=== PATIENT | female | born 1960 | race Caucasian/White ===

== ENCOUNTER 2024-08-07 11:15 | Emergency (ER) | payer BC, SELFPAY ==
--- OUTSIDE RECORDS SUMMARY | 2024-08-07 11:17 | XMS_ITS | Clinical Summary ---
[facility] Organization [facility] Address [address] [place] [address] Care Team Providers Care Sheet Rock Nailer Name Role Phone Radha Shaver PA-C Primary Care Provider [phone] Source Comments You are receiving this document as you are listed as the primary care provider,follow-up provider, or the patient has been referred to you for consultation.This is in compliance with the Medicare andBerger Hospitalcaid EHR Incentive Program,which states Providers who transition their patient to another setting of careor provider of care or refers their patient to another provider of care shouldprovide summary care record for each transition of care or referral. [email or web address] Allergies No known active allergies Medications Probiotic Product (ACIDOPHILUS PROBIOTIC) capsule Twice daily for 10 days 20 Cap 0 05/29/2016 Active ascorbic acid 500 MG tablet Take 500 mg by mouth daily. Active cholecalciferol (VITAMIN D3) 1000 units tablet Take 1,000 Units by mouth daily. Active Active Problems Problem Noted Date Diagnosed Date Obesity (BMI 35.0-39.9 without comorbidity) 04/05 Elevated blood pressure read ing without diagnosis of hypertension 04/19/2017 Immunizations Immunization Administration Dates Next Due DT Ped 12/24/1991 Flu Vac Preserv Free (3+yrs) 02/15/2010 HepA-HepB ([place], 18+ yrs) 04/19/2017,08/04/19 05,03/29/2004 Influenza, Unspecified Formulation 02/17/2017 Td 04/02/2003 Tdap 05/29/2016 Family History Medical History Relation Name Comments Cataract Father Hearing Loss Father Cataract Mother Atrial Fib Brother 1 No Known Problems Brother 2 Cancer Maternal Grandfather Lung ca ncer, age 30s Cancer Maternal Grandmother Breast cancer late 40s? No Known Problems Paternal Grandfather Di ed after hip fracture. No Known Problems Paternal Grandmother Atrial Fib Sister 1 Obesity Sister 1 No Known Problems Sister 2 Relation Name Status Comments Father Alive Mother Alive Brother 1 Alive Brother 2 Alive Maternal Grandfather Maternal Grandmother Paternal Grandfather Paternal Grandmother Sister 1 Alive Sister 2 Alive Social History Tobacco Use Types Packs/Day Years Used Date Smoking Tobacco: Never Smokeless Tobacco: Never Alcohol Use Standard Drinks/Week Comments Yes 2 (1 standard drink = 0.6 oz pur e alcohol) Comments No Sex and Gender Information Value Date Recorded Sex Assigned at Not on file Legal Sex Female 4:44 AM CDT Gender Identity Not on file Sexual Orientation Not on file 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 Not on file Not on file Not on file Last Filed Vital Signs Vital Sign Reading Time Taken Comments Blood Pressure 136/78 11/09/2017 10:26 AM CDT Pulse 104 11/09/2017 10:26 AM CDT Temperature 36.9 C (98.4 F) 11/09/2017 10:26 AM CDT Respiratory Rate 24 11/09/2017 10:26 AM CDT Oxygen Saturation 97% 11/09/2017 11:54 AM CDT Inhaled Oxygen Concentration - - Weight 118.4 kg (261 lb) 04/19/2017 9:54 AM RISK MANAGEMENT SPECIALIST Height 174 cm (5' 8.5) 04/19/2017 9:54 AM RISK MANAGEMENT SPECIALIST Body Mass Index 39.11 04/19/2017 9:54 AM RISK MANAGEMENT SPECIALIST Plan of Treatment Health Maintenance Due Date Last Done Comments Colon Cancer Screening Plan Due 1960 Cholesterol 03/29/2009 03/29/2004 Pneumococcal 50+ Yrs (1 of 1 - PCV) 2010 Zoster/Shingles (1 of 2) 2010 Adult Preventive Visit 04/19/2018 04/19/2017 Mammogram 05/09/2018 05/09/2017 Cervical Cancer Screening 04/19/20202016, 04/19/2017, 03/29/2004, Additional history exists COVID-19 Vaccine ( season) 2024 07/28/2020 Influenza (#1) 2024 01/15/2020, 02/04, 02/17/2017, Additional history exists DTaP/Tdap/Td (4 - Tdap) 05/29/2026 05/29/19 17, 04/02/2003, 12/24/1991 RSV (1 - 1-dose 75+ series) 07/11/2035 HIV Screening (Preventive Services) Completed 04/19/2017 Hep C Screening (Preventive Services) Completed 04/19/2017 HepA Aged Out 04/19/2017, 07/06, 03/29/2004 No longer eligible based on patient's age to complete this topic HepB Completed 04/19/2017, 07/06, 03/29/2004 Hib Aged Out No longer eligi ble based on patient's age to complete this topic IPV (Polio) Aged Out No longer eligi ble based on patient's age to complete this topic MCV4 Aged Out No longer eligi ble based on patient's age to complete this topic Meningococcal B Aged Out No longer el igible based on patient's age to complete this topic Procedures Procedure Name Priority Date/Time Associated Diagnosis Comments MM MAMMOGRAM SCREENING BILAT W CAD Routine 05/09/2017 11:36 AM RISK MANAGEMENT SPECIALIST Screening for breast cancer ANATOMICAL PATH LIQUID BASED Routine 04/19/2017 10:58 AM RISK MANAGEMENT SPECIALIST HIV 1/2 AG/AB 4TH GEN Routine 04/19/2017 10:51 AM RISK MANAGEMENT SPECIALIST Screening for STDs (sexually transmitted diseases) HEPATITIS C ANTIBODY, WITH REFLEX Routine 04/19/2017 10:51 AM RISK MANAGEMENT SPECIALIST Screening for STDs (sexually transmitted diseases) CHOLESTEROL, TOTAL AND HDL Routine 03/29/2004 4:11 PM RISK MANAGEMENT SPECIALIST from Last 3 Months or Most Recently Relevant to Health Maintenance Results * MM Mammogram Screening Bilat W CAD (05/09/2017 11:36 AM RISK MANAGEMENT SPECIALIST) Anatomical Region Laterality Modality Breast Bilateral Mammography Impressions 05/09/2017 11:45 AM RISK MANAGEMENT SPECIALIST : ACR BI-RADS Category 1: Negative RECOMMENDATION: Follow Up Imaging in 12 months - Bilateral The results and recommendations of this examination will be communicated to the patient. Narrative 05/09/2017 11:45 AM RISK MANAGEMENT SPECIALIST MM MAMMOGRAM SCREENING BILAT W CAD performed on 05/09/17 No comparisons were made when reading this study. FINDINGS: Bilateral screening mammogram was performed with the assistance of Computer-Aided Detection. The breasts have scattered areas of fibroglandular density. There is no radiographic evidence of malignancy. Radha Shaver PA-C RAD MULUGETA Final Result * Pap Smear (04/19/2017 10:58 AM RISK MANAGEMENT SPECIALIST) 04/19/2017 10:5 8 AM RISK MANAGEMENT SPECIALIST Narrative MELIDA MOJICA - 04/25/2017 3:09 PM RISK MANAGEMENT SPECIALIST FINAL GYNECOLOGICAL CYTOLOGY REPORT Pathology #: [id number] Date Obtained: 04/19/2017 Date Received: 04/22/2017 INTERPRETATION/RESULTS: Negative for Intraepithelial Lesion or Malignancy. SPECIMEN ADEQUACY: Satisfactory for Evaluation. Endocervical cells/transformation zone component present. Verified on 04/25/2017 by EDSON SCOTT(ASCP) (electronic signature) CLINICAL NOTES: Abnormal bleeding: No, LMP: Postmenopausal, Menstrual status: Post Menopausal, Current form of therapy: None apply LIQUID BASED PAP SMEAR SPECIMEN TYPE: ROUTINE CERVICAL PAP TEST PLEASE NOTE: The pap smear is a screening test designed to aid in the detection of cervical cancer and its precursor lesions. It is not a diagnostic procedure and should not be used as the sole means of detecting cervical cancer. Both false-positive and false-negative reports may occur. Performed at [facility], [address] [place] [address] Radha Shaver PA-C LAB_1 Final Result [facility]IOR [address] [place] [address] * HIV 1/2 Ag/Ab 4th Generation (04/19/2017 10:51 AM RISK MANAGEMENT SPECIALIST) HIV-1 p24 Ag and HIV-1/HIV-2 Ab Nonreactive Nonreactive PN SOFT 04/19/2017 10:5 1 AM RISK MANAGEMENT SPECIALIST 04/19/2017 2:57 PM RISK MANAGEMENT SPECIALIST Narrative PN SOFT - 04/19/2017 4:14 PM RISK MANAGEMENT SPECIALIST Performed at [facility], [address] [place] [address] CLIA number [id number] us Radha Shaver PA-C LAB_1 Final Result Performing Organization Address [facility] Co de Phone Number PN SOFT [address] [place] [address] * Hepatitis C Virus [place] with Reflex (04/19/2017 10:51 AM RISK MANAGEMENT SPECIALIST) [facility] Hepatitis C Antibody Nonreactive Nonreactive PN SOFT 04/19/2017 10:5 1 AM RISK MANAGEMENT SPECIALIST 04/19/2017 2:57 PM RISK MANAGEMENT SPECIALIST Narrative PN SOFT - 04/19/2017 4:14 PM RISK MANAGEMENT SPECIALIST Performed at [facility], [address] [place] [address] CLIA number [id number] us Radha Shaver PA-C LAB_1 Final Result Performing Organization Address [facility] de Phone Number PN SOFT [address] [place] [address] * (ABNORMAL) Cholesterol, Total and HDL (03/29/2004 4:11 PM RISK MANAGEMENT SPECIALIST) Pathologist [facility] Cholesterol/HDL Ratio Screen 2.2 No normal range HP CONVERSION Cholesterol 139 125 - 199 mg/dL HP CONVERSION HDL Cholesterol 63(H) 40 - 60 mg/dL HP CONVERSION 03/29/2004 4:11 PM RISK MANAGEMENT SPECIALIST us Terrie Alcantara APRN, ELLEN LAB_1 Final Result Performing Organization Address City/[facility] Co de Phone Number HP CONVERSION from Last 3 Months or Most Recently Relevant to Health Maintenance Insurance [place] [address] Care Teams Sheet Rock Nailer Relationship Specialty Start Date End Date Radha Shaver, PAJose EnriqueC [address] [place], [place] [id number] PCP - General Physician Risk Advisor 04/17/17
--- OUTSIDE RECORDS SUMMARY | 2024-08-07 11:18 | XMS_ITS | Data Portability ---
Author Organization [facility] Address [address] [place] [address] Assessment Encounter Date Assessment Date Assessment LastModified by Organization Details LastModified Time 07/30/2024 07/30/2024 Urinary tract infection - supported by the patient's symptoms of dark, reddish urine and a burning sensation, along with a prior history of UTI. - Prescribed antibiotics to be taken once in the morning and once at night for the next five days - Suggested drinking cranberry juice - Advised to increase fluid intake - Recommended not to hold urine for extended periods as a preventative measure Not available 07/30/2024 20:55:22 Plan of Treatment Reminders Order Date Submit Date Provider Last Modified By Organization Details Last Modified Time Details Appointments None recorded. Lab None recorded. Referral None recorded. Procedures None recorded. Surgeries None recorded. Imaging None recorded. Medication Orders nitrofurant oin monohydrate /macrocryst als 100 mg capsule 2024 025 [id number], [address], [place], [address], 20:58:29 Patient TargetsNo targets recorded. Patient Instructions Encounter Date Encounter Id Patient Instructions Last Modified By Organization Details Last Modified Time 07/30/2024 [id number] Urinary Tract Infection (UTI) in Women: Care Instructions Not available 07/30/2024 20:58:27 Summary of Today's Visit: During your visit, we discussed your symptoms suggestive of a urinary tract infection (UTI), including darkish, reddish urine and a burning sensation when urinating. You indicated that these symptoms began yesterday, and you had a similar infection about nine months ago. Treatment Plan and Recommendations: To address your UTI, you will begin a course of antibiotics. Please take one antibiotic tablet in the morning and one at night for the next five days. Alongside this, increasing your fluid intake is crucial. You can consume cranberry juice, which can be beneficial for UTI prevention and management. Preventive Advice: Remember not to hold your urine for long periods, as this can increase the risk of UTIs. If you feel the urge to urinate, make sure to go promptly. Maintaining this habit can help prevent future infections. Follow-Up: There is no need for immediate follow-up unless your symptoms persist beyond the course of antibiotics or worsen. Should you experience ongoing symptoms or new concerns, please contact us for further assistance. Not available 07/30/2024 20:55:27 Reason for Referral None Reported. Medical Equipment None Reported. Allergies No known drug allergies Medications Name Sig Start Date Stop Date Status Note LastModified by Organization Details LastModified Time sulfamethoxazol e 800 mg-trimethoprim 160 mg tablet active Not Available Not Availabl e Not Available nitrofurantoin monohydrate/mac rocrystals 100 mg capsule Take 1 capsule every 12 hours by oral route for 5 days. 2024 active Not Available Not Available Not Avai lable Vitals None Recorded Social History None recorded. Functional Status None recorded. Mental Status None recorded. Family History Nothing Reported. Medical History No medical history recorded. Gynecological HistoryNo gynecological history recorded. Obstetrics History GPAL:G 0 P 0 0 0 0 Past Encounters Encounter ID Performer Location Encounter Start Date Encounter Closed Date Diagnosis/Indication Diagnosis SNOMED-CT Code Diagnosis ICD10 Code Diagnosis Note [id number] FLORES Loyd [facility] [address] [address] 07/30/2024 20:51:07 07/30/2024 20:59:59 Acute urinary tract infection 546593731 N39.0 Health Concerns Section Related Observation LastModified by Organization Detai ls LastModified Time None Recorded Concern Status LastModified by Organization Details LastModified Time None Recorded Advance Directives Directive None Recorded Payers Encounter Date Sequence Insurance Name Policy Number Policy Rob Covered Member ID Rob Member ID Guarantor Name 07/30/2024 1 [facility] [id number] Ginny Pandey [id number] Ginny Mellobenoit 07/30/2024 2 *SELF PAY* [id number] Ginny Pandey [id number] Ginny Pandey Notes Date Note Type Note Provider Name and Address Organization Details Recorded Time 07/30/2024 text/html Call connected , pt greeted,pt name, and location verified. Telemedicine and scribe consent obtained. Clinician attest she is physically located in [facility] at the time of the visit. CC: Dark urine and burning sensation during urination HPI: The patient reports the onset of urinary symptoms yesterday, characterized by very dark, darkish, reddish urine and a burning sensation during urination. The patient suspects a urinary tract infection (UTI), having experienced a similar episode approximately nine months ago. The severity of the symptoms prompted the patient to seek medical attention promptly. There have been no treatments or medications taken prior to this visit; the patient has only been consuming a lot of water to manage symptoms. Patient denies having any allergies to medications. The patient has not reported any associated symptoms such as fever, flank pain, or abdominal cramps. FLORES Loyd [address] [place] [address], [address], [facility] 07/30/2024 20:58:29 OBGyn Episode No OBEpisode recorded.
--- OUTSIDE RECORDS SUMMARY | 2024-08-07 11:18 | XMS_ITS | Continuity of Care Document ---
Author Organization [place] - [facility] [employer] , [facility] Address [address] [address] Assessment Encounter Date Assessment Date Assessment LastModified [...] /macrocryst als 100 mg capsule 2024 025 [id number], [address], [place], [address], 20:58:29 Patient TargetsNo targets recorded. Patient Instructions Encounter Date Encounter Id Patient Instructions Last Modified By Organization Details Last Modified Time 07/30/2024 [id number] Urinary Tract Infection (UTI) in Women: Care [...] SNOMED-CT Code Diagnosis ICD10 Code Diagnosis Note [id number] FLORES Loyd [facility] [address] [facility] [address] [place] [address] 07/30/2024 20:51:07 07/30/2024 20:59:59 Acute urinary tract infection [id number] N39.0 Health Concerns Section Related Observation LastModified by Organization Detai ls LastModified Time None Recorded Concern Status LastModified by Organization Details LastModified Time None Recorded Payers Encounter Date Sequence Insurance Name Policy Number Policy Rob Covered Member ID Rob Member ID Guarantor Name 07/30/2024 1 [facility] [id number] Ginny Pandey [id number] Ginny Pandey 07/30/2024 2 *SELF PAY* [id number] Ginny Pandey [id number] Ginny Pandey Notes Date Note Type Note Provider Name and Address Organization Details Recorded Time 07/30/2024 text/html Call connected , pt greeted,pt name, and location verified. Telemedicine and scribe consent obtained. Clinician attest she is physically located in [facility] at the time of the visit. CC: [...] flank pain, or abdominal cramps. FLORES Loyd [address] [place] [address], [place], [address], [facility] 07/30/2024 20:58:29 OBGyn Episode No OBEpisode recorded.
[2024-08-07 11:19] VITALS: BP 149/96; PULSE 104; RESP 20; TEMP 36; O2SAT 96; BMI 41.3
--- NOTE | 2024-08-07 11:38 | ED_ITS ---
HPI - General Adult General Chief complaint: Flank Pain Stated complaint: UTI Time Seen by Provider: 08/07/24 11:29 History of Present Illness HPI narrative: Patient is a otherwise healthy 64-year-old woman comes in today with with 8 days of intermittent left flank pain and dysuria. She is on online provider last week was placed on Macrobid. The dysuria improved with the left flank pain has worsened. The pain is in the CVA region on the left with no significant radiation. Not done any recent changes in her activity level. She has had no dysuria remaining after treatment. No nausea no vomiting. His pain is 8/10 and severe as well as sharp and stabbing. Patient is otherwise in her usual state of health. Related Data Allergies Allergy/AdvReac Type Severity Reaction Status Date / Time No Known Drug Allergies Allergy Verified 08/07/24 11:19 Review of Systems Status of ROS: Reports: 10 or more systems reviewed and unremarkable except as noted in History and below PFSH PFS Social History Smoking Status: Never smoker Do you use any of these nicotine containing products: None Second hand tobacco smoke exposure: No How often do you have a drink containing alcohol: monthly or less How many standard drinks containing alcohol do you have on a typical day: 1 or 2 How often do you have six or more drinks on one occasion: Never AUDIT-C Alcohol total score: 1 Non-prescribed substance use: denies use service: No Exam Narrative: Exam Narrative: EXAM GENERAL: Patient appears uncomfortable. EYES: No scleral icterus. ENT: Tympanic membranes and oropharynx normal. THYROID: no thyroid nodules or thyromegaly. LYMPH: No supraclavicular or cervical lymphadenopathy. SKIN: Visible skin seen during exam normal or with benign process only. EXT: No dependent lower extremity pedal edema. HEART: Regular rate and rhythm with no murmurs, rubs, or gallops. LUNGS: Clear to auscultation bilaterally with no crackles or wheezes. ABD: Soft, non tender, non distended. PSYCH: Good eye contact, speech is not pressured. Const: Vital Signs, click to edit/add: Vital Signs - 24 hr 08/07/24 11:19 Temperature 96.8 F L Pulse Rate [Pulse Oximeter] 104 H Respiratory Rate 20 Blood Pressure [Ri ght Forearm] 149/96 H Pulse Oximetry 96 Oxygen Delivery Me thod Room Air Course Course ED Course: Patient seen and examined. CT abdomen pelvis kidney stone protocol as well as CBC UA basic metabolic panel pending. Vital Signs Vital signs: Initial Vital Signs Temperature 96.8 F L 08/07/24 11:19 Temperature Source Temporal Artery Scan 08/07/24 11:19 Pulse Rate 104 H 08/07/24 11:19 Pulse Rhythm Regular 08/07/24 11:19 Respiratory Rate 20 08/07/24 11:19 Blood Pressure 149/96 H 08/07/24 11:19 Blood Pressure Mean 113 H 08/07/24 11:19 Blood Pressure Position Sitting 08/07/24 11:19 Pulse Oximetry 96 08/07/24 11:19 Oxygen Delivery Method Room Air 08/07/24 11:19 Vital Signs Temperature 96.8 F L 08/07/24 11:19 Pulse Rate 104 H 08/07/24 11:19 Respiratory Rate 20 08/07/24 11:19 Blood Pressure 149/96 H 08/07/24 11:19 Pulse Oximetry 96 08/07/24 11:19 Oxygen Delivery Method Room Air 08/07/24 11:19 Temperature 96.8 F L 08/07/24 11:19 Pulse Rate 104 H 08/07/24 11:19 Respiratory Rate 20 08/07/24 11:19 Blood Pressure 149/96 H 08/07/24 11:19 Pulse Oximetry 96 08/07/24 11:19 Oxygen Delivery Method Room Air 08/07/24 11:19 Medical Decision Making [facility] Narrative Medical decision making narrative: Patient is a 64-year-old woman who presents with left flank pain. CT of the abdomen and pelvis shows a 7 mm kidney stone in the bladder with left-sided hydronephrosis. No signs of UTI on UA. She does have an adrenal mass that needs further evaluation with MRI which can be done as an outpatient. This time will treat her with plenty of rest plenty fluids Vicodin as needed and follow-up with her primary doctor the next 1-2 weeks to schedule outpatient MRI of the left adrenal. Lab Data Labs: Lab Results 08/07/24 Range/Units 11:50 WBC 8.24 (4.50-11.00) K/uL RBC 4.87 (4.00-5.20) m/uL Hgb 13.5 (12.0-16.0) gm/dL Hct 41.9 (33.0-51.0) % MCV 86 (80-100) fL MCH 28 (26-34) pg MCHC 32 (32-36) gm/dL RDW Coeff of Arthur 12.8 (11.5-15.5) % Plt Count 190 (140-440) K/uL Neut % (Auto) 81.1 H (42.0-72.0) % Lymph % (Auto) 10.2 L (20-44) % Sutter % (Auto) 7.9 (0.0-11.0) % Eos % (Auto) 0.5 (0.0-7.0) % Baso % (Auto) 0.1 (0.0-3.0) % Neut # (Auto) 6.70 (1.7-7.0) K/uL Lymph # (Auto) 0.80 L (0.90-2.90) K/uL Sutter # (Auto) 0.70 (0.00-0.90) K/UL Eos # (Auto) 0.04 (0.00-0.50) K/uL Baso # (Auto) 0.01 (0.00-0.30) K/uL Abs Immat Gran (auto) 0.02 (0.00-0.30) K/uL Imm/Tot Granulo (auto) 0.2 % Sodium 138 (135-149) mmol/L Potassium 3.9 (3.6-5.1) mmol/L Chloride 103 (96-114) mmol/L Carbon Dioxide 24 (20-32) mmol/L Anion Gap 11 (7-15) mEq/L BUN 25 (7-30) mg/dL Creatinine 1.3 (0.5-1.5) mg/dL Estimated Creat Clear 45.69 Estimated GFR 46 ml/min Glucose 101 (60-115) mg/dL Calcium 9.3 (8.4-10.6) mg/dL Urine Color Yellow (Yellow) Urine Appearance Slightly Cloudy A (Clear) Urine pH 5.5 (5.0-8.5) Ur Specific [place] 1.025 (1.000-1.030) Urine Protein Negative (Negative) Urine Glucose (UA) Negative (Negative) Urine Ketones Negative (Negative) Urine Blood Trace-intact A (Negative) Urine Nitrite Negative (Negative) Urine Bilirubin Negative (Negative) Urine Urobilinogen 0.2 (0.2-1.0) Ur Leukocyte Esterase Negative (Negative) Urine RBC 0-2 (0-2) Urine WBC 0-2 (0-5) Ur Squamous Epith Cells Few (None-Few) Uric Acid Crystals Moderate A (None) Urine Bacteria None (None) Discharge Plan Discharge Clinical Impression: Kidney stone Patient Disposition: Home, Self-Care Condition: Stable Instructions: Kidney Stones (ED) Additional Instructions: [place] as directed. Plenty of fluid Screen urine Follow-up with your doctor in the next 1-2 weeks to schedule MRI of the left adrenal. Activity Level: No Restrictions Discharge Diet: Regular Follow Up/Referrals: Provider,Not a Local [Primary Care Provider] - Stand Alone Forms: freshbag Info Instructions
--- NOTE | 2024-08-07 11:40 | CRLHL7_ITS ---
For Patients: As a result of the Century Cures Act, medical imaging exams and procedure reports are released immediately into your electronic medical record. You may view this report before your referring provider. If you have questions, please contact your health care provider. Indication: Left-sided stone Technique: CT abdomen and pelvis without contrast Comparison: None. Findings: Lower chest is clear. The liver, gallbladder, pancreas, spleen, and right adrenal gland are normal. 65 x 52 millimeter low-density mass/cystic lesion with small calcifications extends from the left adrenal gland. The right kidney is normal. There is moderate left hydroureteronephrosis extending to the urinary bladder and no stones within the left kidney or the left ureter. There is a 7 millimeter stone within the urinary bladder which is minimally filled and inadequately evaluated. There are no pelvic cysts or masses. The hollow viscera is without obstruction or adjacent inflammatory stranding. There is no free air, ascites or lymphadenopathy. The abdominal aorta is normal in caliber. Soft tissues are unremarkable. There are degenerative changes within the lumbar spine. IMPRESSION: 1. Large left adrenal cystic neoplasm, with differential diagnosis to include benign (adrenal pseudocyst, endothelial cyst) versus malignant (carcinoma, pheochromocytoma) etiologies. Further evaluation is warranted to include appropriate laboratory correlation and multi phase adrenal CT or abdominal MR with and without gadolinium. 2. 7 millimeter stone within the urinary bladder with associated left hydroureteronephrosis is compatible with very recent passage of left-sided kidney stone. Findings discussed with Dr. Farias at time of dictation. Please note that all CT scans at this facility use dose modulation, iterative reconstruction, and/or weight-based dosing when appropriate to reduce radiation dose to as low as reasonably achievable. Dictated by Tino Manzanares MD @ 08/07/2024 12:43:02 PM (Electronically Signed)
[2024-08-07 12:01] LABS: Appearance Urine Slightly Cloudy (Clear); Bilirubin Urine Negative (Negative); Blood Urine Trace-intact (Negative); Color Urine Yellow (Yellow); Glucose Urine Negative (Negative); Ketones Urine Negative (Negative); Leukocyte Esterase Urine Negative (Negative); Nitrite Urine Negative (Negative); Protein Urine Negative (Negative); Specific Gravity Urine 1.025 (1.000-1.030); Urobilinogen Urine 0.2 (0.2-1.0); pH Urine 5.5 (5.0-8.5)
[2024-08-07 12:03] LABS: Basophils Absolute Auto 0.01 K/uL (0.00-0.30); Basophils Percent Auto 0.1 % (0.0-3.0); Eosinophils Absolute Auto 0.04 K/uL (0.00-0.50); Eosinophils Percent Auto 0.5 % (0.0-7.0); Hematocrit 41.9 % (33.0-51.0); Hemoglobin* 13.5 gm/dL (12.0-16.0); Immature Granulocytes Abs Auto 0.02 K/uL (0.00-0.30); Immature Granulocytes Pct Auto 0.2 %; Lymphocytes Percent Auto 10.2 % (20-44); Mean Corpuscular HGB Conc 32 gm/dL (32-36); Mean Corpuscular Hemoglobin 28 pg (26-34); Mean Corpuscular Volume 86 fL (80-100); Monocytes Percent Auto 7.9 % (0.0-11.0); Neutrophils Percent Auto 81.1 % (42.0-72.0); Platelet Count* 190 K/uL (140-440); RDW Coefficient of Variation % 12.8 % (11.5-15.5); Red Blood Count 4.87 m/uL (4.00-5.20); White Blood Count* 8.24 K/uL (4.50-11.00)
[2024-08-07 12:07] LABS: Slide Review Reflex No
[2024-08-07 12:17] LABS: Chloride* 103 mmol/L (96-114); Potassium* 3.9 mmol/L (3.6-5.1); Sodium* 138 mmol/L (135-149)
[2024-08-07 12:20] LABS: Anion Gap 11 mEq/L (7-15); Blood Urea Nitrogen* 25 mg/dL (7-30); Carbon Dioxide* 24 mmol/L (20-32); Creatinine* 1.3 mg/dL (0.5-1.5); Est. Creatinine Clearance* 45.69; Estimated Glomerular Filt Rate 46 ml/min
[2024-08-07 12:21] LABS: Calcium* 9.3 mg/dL (8.4-10.6); Glucose* 101 mg/dL (60-115); RBC Urine 0-2 (0-2); Squamous Epithelial Cell Urine Few (None-Few); Uric Acid Crystals Urine Moderate; WBC Urine 0-2 (0-5)
== END 2024-08-07 13:09 | disposition home or self-care (01) ==
PROVIDERS: Emergency Provider Internal Medicine
DX: N13.30 Unspecified hydronephrosis (principal); N20.0 Calculus of kidney
CPT/HCPCS: 36415; 74176; 80048; 81001; 81003; 85025; 99283; 99284

== ENCOUNTER 2024-12-02 16:21 | Outpatient (CLI) | payer BC, SELFPAY ==
--- NOTE | 2024-12-02 16:45 | CRLHL7_ITS ---
For Patients: As a result of the Century Cures Act, medical imaging exams and procedure reports are released immediately into your electronic medical record. You may view this report before your referring provider. If you have questions, please contact your health care provider. INDICATION: Other specified soft tissue disorders. COMPARISON: None. TECHNIQUE: A compression venous ultrasound exam was performed of the right lower extremity using caceres-scale imaging, color Doppler, and spectral Doppler analysis. FINDINGS: Sonographic imaging of the right lower extremity demonstrates normal compressibility and color Doppler venous blood flow within the common femoral, femoral, deep femoral, and proximal greater saphenous veins. At a lower level the popliteal, peroneal, and posterior tibial veins also show normal compressibility and color Doppler venous blood flow. There is a 2.1 x 4.3 x 7.2 cm complex lobulated fluid collection in the right popliteal fossa with no internal vascularity. Limited imaging of the contralateral groin demonstrates a normal spectral waveform and color Doppler venous blood flow within the left common femoral vein. IMPRESSION: 1. Negative for acute DVT in the right lower extremity. 2. Complex right popliteal fossa cyst. Dictated by Gely Das MD @ 12/03/2024 3:21:43 AM (Electronically Signed)
== END 2024-12-02 16:22 | disposition home or self-care (01) ==
LOC: US 16:22
PROVIDERS: Visit Provider Physician Assistant Medical
DX: M79.89 Other specified soft tissue disorders (principal); M71.21 Synovial cyst of popliteal space [Baker], right knee
CPT/HCPCS: 93971

== ENCOUNTER 2024-12-09 07:01 | Outpatient (CLI) | payer BC, SELFPAY ==
--- NOTE | 2024-12-09 07:15 | CRLHL7_ITS ---
For Patients: As a result of the Cures Act, medical imaging exams and procedure reports are released immediately into your electronic medical record. You may view this report before your referring provider. If you have questions, please contact your health care provider. INDICATION: Cystic lesion left adrenal gland. COMPARISON: CT abdomen and pelvis without and with contrast August 07, 2024. TECHNIQUE: Precontrast T1 on T2 weighted imaging; T2 haste imaging; in- and out of phase imaging; postcontrast imaging including subtraction; 22 cc of Dotarem contrast was injected IV. FINDINGS: A 6 cm cystic lesion identified involving the left adrenal gland with septations and possible enhancement of the septations and wall. No obvious hemorrhagic products identified within the gland. No nodularity identified involving the wall. The right adrenal gland is unremarkable. Liver, spleen and pancreas are normal. Gallbladder is unremarkable. Resolution of left-sided hydronephrosis when compared to August 07, 2024. Kidneys are unremarkable. No retroperitoneal lymphadenopathy. IMPRESSION: 1. A 6 cm septated thick-walled cystic lesion left adrenal gland with subtle enhancement of the wall of the cyst; this may represent a pseudocyst; underlying malignancy cannot be ruled out and surgical consultation suggested. 2. Negative MRI of the abdomen otherwise. Dictated by Flor Brooks MD @ 12/11/2024 8:54:16 AM (Electronically Signed)
== END 2024-12-09 07:02 | disposition home or self-care (01) ==
LOC: MRI 07:02
PROVIDERS: PCP Physician Assistant Medical; Visit Provider Physician Assistant Medical
DX: E27.8 Other specified disorders of adrenal gland (principal)
CPT/HCPCS: 74183; A9575

== ENCOUNTER 2025-01-28 16:15 | Outpatient (RCR) | payer BC, SELFPAY | END 2025-04-13 08:55 | disposition home or self-care (01) | PROVIDERS: PCP Physician Assistant Medical; Visit Provider Physician Assistant Surgical | DX: M17.11 Unilateral primary osteoarthritis, right knee (principal); Z51.89 Encounter for other specified aftercare | CPT/HCPCS: 97110; 97140; 97162 ==

== ENCOUNTER 2025-02-11 07:35 | Outpatient (CLI) | payer BC, SELFPAY ==
[2025-02-12 23:01] LABS: Cortisol, Serum 1.2 ug/dL
== END 2025-02-11 07:36 | disposition home or self-care (01) ==
LOC: NPINS 07:35
PROVIDERS: PCP Physician Assistant Medical; Visit Provider Internal Medicine
DX: E27.9 Disorder of adrenal gland, unspecified (principal)
CPT/HCPCS: 80299; 82024; 82533

== ENCOUNTER 2025-02-26 09:06 | Outpatient (CLI) | payer BC, SELFPAY ==
[2025-03-02 18:19] LABS: HPV Source Cervical
[2025-03-03 09:10] LABS: Pap Test Digital Imaging Done
== END 2025-02-26 09:07 | disposition home or self-care (01) ==
PROVIDERS: PCP Physician Assistant Medical; Visit Provider Registered Nurse
DX: Z12.4 Encounter for screening for malignant neoplasm of cervix (principal); Z13.6 Encounter for screening for cardiovascular disorders
CPT/HCPCS: 80061; 87624; 87625; 88141; 88142; 88175

== ENCOUNTER 2025-03-18 15:19 | Outpatient (CLI) | payer BC, SELFPAY | END 2025-03-18 15:20 | disposition home or self-care (01) | PROVIDERS: PCP Physician Assistant Medical; Visit Provider Physician Assistant Surgical | DX: M25.50 Pain in unspecified joint (principal) | CPT/HCPCS: 86038; 86140; 86200; 86431 ==

== ENCOUNTER 2025-03-26 08:01 | Outpatient (CLI) | payer BC, SELFPAY ==
--- NOTE | 2025-03-26 08:15 | CRLHL7_ITS ---
For Patients: As a result of the Century Cures Act, medical imaging exams and procedure reports are released immediately into your electronic medical record. You may view this report before your referring provider. If you have questions, please contact your health care provider. INDICATION: BILATERAL SCREENING MAMMOGRAM, ASYMPTOMATIC 64 Y/O FEMALE COMPARISON: 05/09/2017 TECHNIQUE: Digital mammogram in CC and MLO projections including computer-aided detection (CAD) and tomosynthesis. BREAST COMPOSITION: There are scattered areas of fibroglandular density. FINDINGS: No suspicious findings. ASSESSMENT: BI-RADS 1 Negative RECOMMENDATION: Annual screening mammogram. A lay language report of this examination will be provided to the patient. Dictated by: Hiral Nicole MD @ 03/31/2025 18:59:41 (Electronically Signed)
== END 2025-03-26 08:02 | disposition home or self-care (01) ==
LOC: MAMMO 08:01
PROVIDERS: PCP Physician Assistant Medical; Visit Provider Physician Assistant Medical
DX: Z12.31 Encounter for screening mammogram for malignant neoplasm of breast (principal)
CPT/HCPCS: 77063; 77067